=== PATIENT | male | born 1970 | race African-American/Black ===

== ENCOUNTER 2018-09-10 21:48 | Emergency (ER) | payer MEDICAID ==
[~2018-09-10] VITALS: Ht 180.3 cm; Wt 76.2 kg
[2018-09-10 21:50] VITALS: BP 148/78
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
[2018-09-10] MEDS ORDERED: Norco 5mg/325mg tab ORAL ONE (22:15)
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
[2018-09-11] VITALS: BP 142/75
[2018-09-11] MEDS ORDERED: HYDROCODON-ACE1 EA15 ORAL (01:34)
[2018-09-11 01:44] VITALS: BP 138/71
[2018-09-11 01:45] VITALS: BP 142/75
--- NOTE | 2018-09-11 01:46 | NUR ---
ED Nurse Note: PT is Dc per ERMD order. pt is instructed to follow up with primary provider as soon as possible. pt is instructed to return to ER if any variance of symptoms, questions or concerns. pt has left with all DC notes and prescriptions. pt has taught back and shows understanding of DC notes and prescriptions. pt vital signs are stable as well as condition and status. pt is stable for DC. pt vital signs status and condition is reported to ERMD prior to DC. pt is alert and oriented times 4. pt is able to ambulate. ID band removed
== END 2018-09-11 01:53 | disposition home or self-care (01) ==
LOC: EDBD 21:48 → EMR 22:28
DX: S02.670A Fracture of alveolus of mandible, unspecified side, initial encounter for closed fracture (principal); S03.2XXA Dislocation of tooth, initial encounter; Y04.2XXA Assault by strike against or bumped into by another person, initial encounter; Y92.89 Other specified places as the place of occurrence of the external cause
CPT/HCPCS: 70486; 99284